=== PATIENT | female | born 1955 | race Caucasian/White ===

== ENCOUNTER 2018-07-16 13:30 | Outpatient (CLI) | payer MEDICARE ==
--- NOTE | 2018-07-16 15:09 | MRI ---
MRI CERVICAL SPINE WITHOUT CONTRAST: HISTORY: Cervical radiculopathy. CORRELATION: Plain film of the cervical spine from 07/16/2018. TECHNIQUE: Multiplanar, multisequential images of the cervical spine obtained. FINDINGS: Postoperative changes are noted. Anterior plate and screws are seen at the C4, C5, C6, and C7 levels . This produces metallic artifact on MRI. No significant abnormality at C2-C3. At C3-C4, no significant disk bulge or spondylosis. The foramina are patent. Postoperative fusion changes at C4-C5. Posterior bony hypertrophy effaces the anterior subarachnoid space. The bony changes impinge on the cord centrally at the C6 vertebra, with a small focal spur impinging on the anterior cord, to the left of midline, at this level. At C6-C7, mild effacement of the anterior subarachnoid space. No cord impingement. At C7-T1, slight anterolisthesis. No significant disk bulge or spondylosis. Cord signal is normal. IMPRESSION: Postoperative changes from C4 through C7. Bony fusion at C4-C5 and C5-C6. Hypertrophic changes at C 4-C5 and C5-C6 are noted, as described above. A focal bony spur at C6 impinges on the anterior cord, slightly to the left of midline. POS: C
--- NOTE | 2018-07-16 15:16 | RAD ---
CERVICAL SPINE SEVEN VIEWS: HISTORY: Cervical radiculopathy. COMPARISON: Cervical spine films from August 2013. TECHNIQUE: Lateral views in neutral, flexion, and extension positions. FINDINGS: Prior surgical fusion procedure again noted. Anterior plate and screws again noted, transfixing C4, C5, C6, and C7. Interbody implant at C4-C5 is again noted. There is partial fusion at these levels. There is retraction of one of the screws at the C7 vertebra, of approximately 5 mm. There was retrac tion of this screw previously, measured at that time at approximately 3 mm. This probably represents the left vertebral body screw at the C7 level. There is mild anterolisthesis at C7-T1, which may exacerbate slightly with flexion. This anterolisth esis is measured at approximately 4 mm in the neutral position. There is loss of disk space at C7-T1 . There is partial fusion at C4-C5 and C5-C6. There is posterior bony hypertrophy at these levels. Co rrelate with today's MRI, which did show cord impingement at C6, due to this hypertrophic change. IMPRESSION: 1. There is retraction of one of the vertebral body screws at C7, which has progressed when compared to the prior examination of 2013, as noted above. 2. Anterolisthesis at C7-T1 is also more prominent today, when compared to prior study. POS: [facility]
== END 2018-07-16 13:31 | disposition home or self-care (01) ==
LOC: SCSMRI 13:30
PROVIDERS: ATTEND Anesthesiology Pain Medicine
DX: M54.12 Radiculopathy, cervical region (principal); M43.13 Spondylolisthesis, cervicothoracic region; M54.13 Radiculopathy, cervicothoracic region; Z98.890 Other specified postprocedural states; Z98.1 Arthrodesis status
CPT/HCPCS: 72052; 72141

== ENCOUNTER 2019-01-17 12:36 | Outpatient (CLI) | payer MEDICARE ==
--- NOTE | 2019-01-17 14:01 | MRI ---
MRI OF THE LUMBAR SPINE WITHOUT CONTRAST: DATE: 01/17/2019. COMPARISON: 11/23/2014. HISTORY: Prior L4-5 fusion, low back pain. TECHNIQUE: Multiplanar multisequence MR imaging of the lumbar spine obtained without contrast. FINDINGS: There is levoscoliosis of the lumbar spine centered at L3. Bilateral posterior fusion hardware at L4- 5 noted with pedicle screws and vertically oriented interlocking rods. There is an intervertebral disc device at L4-5. The sagittal STIR imaging demonstrates no focal area of osseous marrow edema. Mild anterior wedge deformity of T12 and L1 noted with no associated osseous marrow edema suggesting old mild anterior wedge compression fractures. On the basis of 5 lumbar-type vertebral bodies, the conus medullaris terminates at T12-L1. T12-L1: There is disc space narrowing and disc desiccation with mild disc bulge. No significant centr al canal or neural foraminal stenosis. L1-2: There is disc space narrowing with disc desiccation and mild disc bulge. No central canal steno sis. Mild facet hypertrophy. No significant neural foraminal stenosis. L2-3: There is disc space narrowing and disc desiccation with mild disc bulge. Mild bilateral facet h ypertrophy. No significant central canal stenosis. Mild right neural foraminal stenosis. L3-4: Bilateral facet hypertrophy with mild bilateral ligamentum flavum hypertrophy. There is disc de siccation. No significant central canal or neural foraminal stenosis. L4-5: Bilateral laminectomy changes are present. No central canal stenosis. Bilateral facet hypertrop hy. Probable mild left neural foraminal stenosis. No significant right neural foraminal stenosis. Postoperative changes are not optimally evaluated without postcontrast imaging. L5-S1: Mild bilateral facet hypertrophy. No significant central canal or neural foraminal stenosis. The visualized retroperitoneal structures appear grossly unremarkable. IMPRESSION: Postoperative and degenerative change within the lumbar spine as detailed above. Transcribed Date/Time: 01/17/2019 2:42 PM
== END 2019-01-17 12:37 | disposition home or self-care (01) ==
LOC: SCSMRI 12:36
PROVIDERS: ATTEND Nurse Practitioner Family
DX: M47.26 Other spondylosis with radiculopathy, lumbar region (principal); M47.27 Other spondylosis with radiculopathy, lumbosacral region; Z98.890 Other specified postprocedural states
CPT/HCPCS: 72148

== ENCOUNTER 2019-12-19 06:00 | Outpatient (CLI) | payer MEDICARE, OTHER ==
[2019-12-20 14:47] LABS: SARS-CoV-2 MS2 Positive; SARS-CoV-2 N Gene Negative; SARS-CoV-2 S Gene Negative; SARS-CoV-2 by NAA Not Detected (NotDetected); SARS-CoV-2 orf1ab Negative
== END 2019-12-19 06:01 | disposition home or self-care (01) ==
LOC: LABBT 06:00
PROVIDERS: ATTEND Anesthesiology Pain Medicine
DX: Z20.828 Contact with and (suspected) exposure to other viral communicable diseases (principal)
CPT/HCPCS: 87635; U0003

== ENCOUNTER 2019-12-24 10:05 | Day surgery (SDC) | payer MEDICARE ==
[2019-12-22 13:13] VITALS: BMI 30.6
[2019-12-24] MEDS ORDERED: Fentanyl 100 MCG/2 ML VIAL ONE (10:13)
[2019-12-24] MEDS ORDERED: Propofol 500 MG/50 ML VIAL ONE (12:29)
[2019-12-24] MEDS ORDERED: Bupivacaine PF 0.5% 30 ML VIAL ONE (12:30)
[2019-12-24] MEDS ORDERED: Sodium Chloride 0.9% 100 ML ONE ×2 (12:30→12:33)
[2019-12-24] MEDS ORDERED: CEFAZOLIN 1 GM VIAL ONE (12:30)
[2019-12-24] MEDS ORDERED: Lidocaine 1% w/Epinephrine 1:100K 20 ML VIAL ONE (12:30)
--- NOTE | 2019-12-24 14:14 | RAD ---
Exam: Intraprocedure fluoroscopy HISTORY: Dorsal column stimulator insertion Findings: Single fluoroscopic image demonstrates dorsal column stimulator leads terminating at what i s marked the T7 level IMPRESSION: Fluoroscopy as above.
[2019-12-24] MEDS ORDERED: Dexamethasone 20 MG/5 ML VIAL ONE (15:07)
[2019-12-24] MEDS ORDERED: Lidocaine 1% PF 5 ML VIAL ONE (15:07)
[2019-12-24] MEDS ORDERED: Ondansetron PF 4 MG/2 ML Vial ONE (15:07)
--- NOTE | 2019-12-24 18:15 | OP ---
DATE OF PROCEDURE: 12/24/2019 PREOPERATIVE DIAGNOSES: 1. Postlaminectomy syndrome. 2. Chronic pain. 3. Chronic lumbar radiculopathy. POSTOPERATIVE DIAGNOSES: 1. Postlaminectomy syndrome. 2. Chronic pain. 3. Chronic lumbar radiculopathy. PROCEDURES: 1. Implantation of a right spinal cord stimulation electrode Array Subramanian. 2. Implantation of a left spinal cord stimulation Array Subramanian. 3. Implantation of internal pulse generator Subramanian Burst. 4. Intraoperative programming. 5. Fluoroscopic guidance. ANESTHESIA: TIVA. COMPLICATIONS: None. DESCRIPTION OF PROCEDURE: Risks and benefits were discussed. Informed consent was obtained, was taken to the OR, prepped and draped in standard fashion. Fluoroscopic guidance was used to identify the thoracolumbar junction. Incision carried out over the L2-L3 transverse process using the [employer] for dissection and hemostasis. The supplied [employer] needle was advanced into the ligamentum flavum L1-2, loss of resistance technique. One pass, no paresthesia, CSF, or heme using both the right and left paramedian approach. The electrodes were then placed over the dorsal columns under fluoroscopic guidance with the most cephalad electrode of the superior endplate of T7. The left electrode Array was then placed parallel with the first. Intraoperative programming achieved appropriate back and bilateral leg stimulation concordant and overlapping with the patient's pain pattern. After adequate stimulation was assured, the needles removed intact. Stylets were removed intact. The Anchors applied were slipped over each lead, was secured to the fascia using two 2-0 silk sutures. The lead anchors were then snapped and locked. Incision was carried out over the left buttocks. Fascia was undermined tunneling between incisions to pass the leads and connected to the internal pulse generator. IPG was placed in the pocket riding side out. Closure was accomplished in layers using 2-0 Vicryl with the skin closed with a running subcuticular 4-0 Rapide. Prior to closure, all counts were correct x2 and there were no complications. Job ID: [id number]
== END 2019-12-24 15:20 | disposition home or self-care (01) ==
LOC: SDC 10:05
PROVIDERS: ATTEND Anesthesiology Pain Medicine
PROC: 0JH70DZ Insertion of Multiple Array Stimulator Generator into Back Subcutaneous Tissue and Fascia, Open Approach (ICD-10-PCS; principal; 2019-12-24)
PROC: 00HU3MZ Insertion of Neurostimulator Lead into Spinal Canal, Percutaneous Approach (ICD-10-PCS; 2019-12-24)
DX: M96.1 Postlaminectomy syndrome, not elsewhere classified (principal); M54.16 Radiculopathy, lumbar region; G89.29 Other chronic pain; L40.50 Arthropathic psoriasis, unspecified; G62.9 Polyneuropathy, unspecified; F32.9 Major depressive disorder, single episode, unspecified; F41.9 Anxiety disorder, unspecified; Z79.899 Other long term (current) drug therapy; Z88.8 Allergy status to other drugs, medicaments and biological substances; Z91.048 Other nonmedicinal substance allergy status
CPT/HCPCS: 72020; 76000; C1767; C1778; J0690; J1100; J2405; J2704; J3010; J3490; S0020